=== PATIENT | male | born 1985 ===

== ENCOUNTER 2017-06-16 14:00 | Emergency (ER) | payer OTHER ==
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
[2017-06-16] MEDS ORDERED: FLEXERIL PO ONE (17:31)
[2017-06-16] MEDS ORDERED: MOTRIN PO ONE (17:31)
[2017-06-16 17:55] VITALS: BP 128/79
== END 2017-06-16 18:21 | disposition home or self-care (01) ==
LOC: ED 14:00
DX: F07.81 Postconcussional syndrome (principal); R51 Headache; F17.200 Nicotine dependence, unspecified, uncomplicated; V89.2XXA Person injured in unspecified motor-vehicle accident, traffic, initial encounter; Y93.89 Activity, other specified; Y92.89 Other specified places as the place of occurrence of the external cause; Y99.8 Other external cause status
CPT/HCPCS: 70450; 72100; 72125